=== PATIENT | female | born 1995 | race African-American/Black ===

== ENCOUNTER 2019-01-15 11:35 | Emergency (ER) | payer OTHER ==
[2019-01-15 12:15] VITALS: BP 127/69; PULSE 95; TEMP 97.7; BMI 21.9
--- NOTE | 2019-01-15 12:32 | PDOC ---
History of Present Illness - General Chief Complaint: Cold Symptoms Stated Complaint: CONJESTED/ LOSS OF APPETTIE Time Seen by Provider: 01/15/19 12:12 - History of Present Illness Initial Comments: 01/15/19 12:32 23-year-old female with past medical history significant for gastritis presents for sore throat without fever 4 days Past History - Past Medical History Allergies/Adverse Reactions: Allergies Allergy/AdvReac Type Severity Reaction Status Date / Time No Known Allergies Allergy Verified 01/15/19 12:09 Home Medications: Ambulatory Orders NK [No Known Home Medication] 01/15/19 COPD: No CHF: No Other medical history: GASTRITIS - Immunization History Immunization Up to Date: Yes - Suicide/Smoking/Psychosocial Hx Smoking History: Never smoked Hx Alcohol Use: No Drug/Substance Use Hx: Yes (MARIJUANA) Review of Systems - Review of Systems Constitutional: No: Fever HEENTM: Yes: Nose Congestion, Throat Pain, Difficulty Swallowing *Physical Exam - Vital Signs Last Vital Signs Temp Pulse Resp BP Pulse Ox 97.7 F 95 H 16 127/69 100 01/15/19 12:08 01/15/19 12:08 01/15/19 12:08 01/15/19 12:08 01/15/19 12:08 - Physical Exam Comments: 01/15/19 12:34 HEAD: NC/AT EYES: Conjuntiva clear Ears: Canals and TM's normal NOSE: No d/c THROAT: Moist mucous membrances, oral pharanx clear, uvula midline NECK: Supple without adenopathy CARDIAC: S1 S2 LUNGS: CTA Full and Equal breath sounds ABDOMEN: Soft NT ND MS: Full ROM in all joints without edema NEUROLOGIC: No gross sensory or motor deficits, NVID SKIN: Normal color and temperature no lesions or rashes Moderate Sedation - Procedure Monitoring Vital Signs: Procedure Monitoring Vital Signs Temperature 97.7 F 01/15/19 12:08 Pulse Rate 95 H 01/15/19 12:08 Respiratory Rate 16 01/15/19 12:08 Blood Pressure 127/69 01/15/19 12:08 O2 Sat by Pulse Oximetry (%) 100 01/15/19 12:08 Medical Decision Making - Medical Decision Making 01/15/19 12:34 Strep swabs sent, I expect this to be negative. Examination is benign. This is most likely a viral upper respiratory infection. *DC/Admit/Observation/Transfer Diagnosis at time of Disposition: Viral upper respiratory infection - Discharge Dispostion Disposition: HOME Condition at time of disposition: Stable Decision to Admit order: No - Referrals Referrals: Valeriano Garzon [Non Staff, Medical] - - Patient Instructions Printed Discharge Instructions: DI for Viral Upper Respiratory Infection -- Adult Additional Instructions: Return to the emergency room for worsening symptoms. Please follow-up with internal medicine in one to 2 days for further evaluation and treatment options. - Post Discharge Activity
== END 2019-01-15 13:20 | disposition home or self-care (01) ==
LOC: JERFT 11:35
DX: J06.9 Acute upper respiratory infection, unspecified (principal); B97.89 Other viral agents as the cause of diseases classified elsewhere
CPT/HCPCS: 87070; 87880; 99281-25